=== PATIENT | male | born 1970 | race African-American/Black ===

== ENCOUNTER 2019-05-08 01:05 | Emergency (ER) | payer OTHER ==
[~2019-05-08] VITALS: Ht 180.3 cm; Wt 81.6 kg
[2019-05-08 01:10] VITALS: BP 120/72
--- NOTE | 2019-05-08 01:10 | NUR ---
ED Nurse Note: Pt brought into ED by EMANUEL KOHLER [id number] for c/o lower back pain onset 2 hours ago. Pt denies any truama to the area. Pt is aaox4, breathing is normal and unlabored. No acute distress noted.
[2019-05-08] MEDS ORDERED: ROBAXIN-750750 MG PO (01:12)
[2019-05-08] MEDS ORDERED: IBUPROFEN600 MG ORAL (01:12)
[2019-05-08] MEDS ORDERED: Methocarbamol 500mg tab ORAL ONE (01:15)
[2019-05-08] MEDS ORDERED: Ketorolac 30mg Inj IM ONE (01:15)
[2019-05-08 01:25] VITALS: BP 124/74
--- NOTE | 2019-05-08 01:25 | NUR ---
ER DISCHARGE NOTE: Patient is cleared to be discharged per ERMD, pt is aox4, on room air, with stable vital signs. pt was given dc and prescription instructions, pt was able to verbalize understanding, pt id band removed. pt is able to ambulate with steady gait. pt took all belongings.
--- NOTE | 2019-05-08 01:28 | Emergency Room Report ---
History of Present Illness General Chief Complaint: Lower Back Pain or Injury Source: Patient, EMS Present Illness HPI Patient is a 48-year-old male past medical history of hypertension who presents to the ER complaining of lower back pain that started 2 to 3 hours ago. Patient states that he was sleeping and woke up feeling some pain. He denies any fever or chills. He denies any weakness to his lower extremities. Patient denies any changes to his bowel or bladder habits. Patient denies any fever, IV drug use or rash. Patient presents to the ER by EMS. He denies any abdominal pain, nausea or vomiting. He denies any focal weakness. He denies any trauma. COVID-19 risk:Contact w/high r: No COVID-19 risk:Travel to affect: No Has patient experienced salmon: No Allergies: Coded Allergies: No Known Allergies (Unverified , 05/08/19) Patient History Past Medical History: HTN Past Surgical History: none Social History: Reports: smoking, alcohol use Nursing Documentation-[facility] Hx Hypertension: Yes Hx Diabetes: Yes History Of Psychiatric Problem: Yes Review of Systems All Other Systems: negative except mentioned in HPI Physical Exam Vital Signs Date Time Temp Pulse Resp B/P (MAP) Pulse Ox O2 Delivery O2 Flow Rate FiO2 05/08/19 01:08 98.6 82 16 120/72 (88) 99 Room Air Sp02 EP Interpretation: reviewed, normal General Appearance: no apparent distress, alert, GCS 15, non-toxic Head: normocephalic, atraumatic Eyes: bilateral eye normal inspection, bilateral eye PERRL ENT: hearing grossly normal, normal pharynx, no angioedema, normal voice Neck: full range of motion, supple/symm/no masses Respiratory: chest non-tender, lungs clear, normal breath sounds, speaking full sentences Cardiovascular #1: regular rate, rhythm, no edema Gastrointestinal: normal bowel sounds, non tender, soft, non-distended, no guarding, no rebound Rectal: deferred Genitourinary: normal inspection, no CVA tenderness, other - Tenderness to L1 and L2 with no step-offs Musculoskeletal: back normal, normal range of motion, calf tenderness, gait/ station normal, non-tender Neurologic: alert, motor strength/tone normal, oriented x3, sensory intact, responsive, speech normal, other - No saddle anesthesia Psychiatric: judgement/insight normal, memory normal, mood/affect normal, no suicidal/homicidal ideation Reflexes: 3+ knee (R), 3+ knee (L) Skin: no rash Lymphatic: no adenopathy Medical Decision Making Diagnostic Impression: Primary Impression: Lumbar strain ER Course Patient given IM Toradol and Robaxin. Patient ambulating without any difficulty. Patient given prescription for Motrin and Robaxin. I suspect the back pain that the patient is presenting with is non-emergent in etiology. Regarding the history, the patient denies gradual onset, trauma, fevers, night sweats, history of malignancy, pain worse at night, IVDU or refractory pain. Given these pertinent negatives in the history an emergent cause of the back pain is less likely. Also doubt cardiovascular cause of back pain such as aortic dissection or ruptured abdominal aortic aneurysm given patient with equal pulses in all 4 extremities with no diastolic murmur, or pulsatile abdominal mass. Epidural abscess considered unlikely given no fever or history of IVDU. The patient does not have history of malignancy so doubt metastasis to bone. Also doubt caudaequina syndrome since patient with no history of urinary/ fecal incontinence or focal weakness or change in sensation. The patient was counseled that, though unlikely, the possibility of an emergent cause of back pain may still be present and that the patient should return immediately if symptoms persists or worsen. I believe the patient is stable for discharge to follow-up with their PMD for further workup and possible MRI. Last Vital Signs Date Time Temp Pulse Resp B/P (MAP) Pulse Ox O2 Delivery O2 Flow Rate FiO2 05/08/19 01:08 98.6 82 16 120/72 (88) 99 Room Air Disposition: HOME, SELF-CARE Condition: Stable Scripts Methocarbamol* (ROBAXIN-750*) 750 Mg Tablet 750 MG PO TID, #21 TAB 0 Refills Prov: Cindi Smith M.D. 05/08/19 Ibuprofen* (MOTRIN*) 600 Mg Tablet 600 MG ORAL Q8H PRN for For Pain, #30 TAB 0 Refills Prov: Cindi Smith M.D. 05/08/19 Referrals: [facility] Patient Instructions: Lumbosacral Strain Additional Instructions: The patient was provided with discharge instructions, notified to follow-up with a primary care doctor and or specialist in the next 24-48 hours, and to return to the ED if they have worsening of their symptoms. Please note that this report is being documented using CSS99 technology. This can lead to erroneous entry secondary to incorrect interpretation by the dictating instrument. Cindi Smith M.D. May 08, 2019 01:28
== END 2019-05-08 01:25 | disposition home or self-care (01) ==
LOC: EDBD 01:05 → EMR 01:19
DX: S39.012A Strain of muscle, fascia and tendon of lower back, initial encounter (principal); X58.XXXA Exposure to other specified factors, initial encounter; Y92.9 Unspecified place or not applicable; E11.9 Type 2 diabetes mellitus without complications; I10 Essential (primary) hypertension
CPT/HCPCS: 96372; J1885; Z7502; 99283